=== PATIENT | female | born 1985 | race Hispanic/Latino ===

== ENCOUNTER 2020-07-27 11:51 | Emergency (ER) | payer SELFPAY ==
--- NOTE | 2020-07-27 12:21 | Event Note ---
ED Screening Note Date of service: 07/27/20 Time: 12:20 ED Screening Note: Patient complains of nausea, vomiting, and diarrhea starting around 530 this morning Active vomiting in triage This initial assessment/diagnostic orders/clinical plan/treatment(s) is/are subject to change based on patients health status, clinical progression and re- assessment by fellow clinical providers in the ED. Further treatment and workup at subsequent clinical providers discretion. Patient/guardian urged not to elope from the ED as their condition may be serious if not clinically assessed and managed. Initial orders include: Lab
[2020-07-27] MEDS ORDERED: ONDANSETRON 4 MG ODT TAB ONE (12:29)
[2020-07-27] MEDS ORDERED: ONDANSETRON 4 MG ODT TAB PO ONE (12:33)
[2020-07-27 13:52] LABS: Hematocrit 40.3 % (30.3-42.9); Hemoglobin 13.7 gm/dl (10.1-14.3); Mean Corpuscular HGB Conc 34 % (30-34); Mean Corpuscular Volume 89 fl (79-97); Platelet Count 347 K/mm3 (140-440); Red Blood Count 4.53 M/mm3 (3.65-5.03); Red Cell Distribution Width 13.7 % (13.2-15.2)
[2020-07-27] MEDS ORDERED: ONDANSETRON 4 MG/2 ML INJ IV ONE (14:14)
[2020-07-27] MEDS ORDERED: SODIUM CHLORIDE 0.9% 1000 ML 1,000 ML IV ONE (14:14)
[2020-07-27 14:50] LABS: Alanine Aminotransferase 11 units/L (7-56); Albumin 4.5 g/dL (3.9-5); Blood Urea Nitrogen 8 mg/dL (7-17); Calcium 9.5 mg/dL (8.4-10.2); Hemolysis Index 5
[2020-07-27 14:51] LABS: BUN/Creatinine Ratio 11
--- NOTE | 2020-07-27 14:56 | Emergency Department Report ---
ED N/V/D HPI - General Chief complaint: Nausea/Vomiting/Diarrhea Stated complaint: VOMITING/DIARRHEA PUI?: No Time Seen by Provider: 07/27/20 12:20 Source: patient Mode of arrival: Wheelchair Limitations: No Limitations - History of Present Illness Initial comments: 34 YO COMES TO ER CO NV AND DIARRHEA THAT STARTED THIS AM. SHE DID NOT EAT ANYTHING KNOWN TO BE BAD. LMP LAST WEEK. DENIES FEVEER OR CHILLS. DENIES COUGH. DENIES CP OR SOB DENIES ABD PAIN OR BACK PAIN DENIES VAG DC. MD complaint: nausea, vomiting, diarrhea -: Sudden, hour(s), days(s) Description of Vomiting: watery Associated Abdominal Pain: No Severity: moderate Quality: cramping Worsens with: none Associated Symptoms: denies other symptoms - Related Data Previous Rx's Medication Instructions Recorded Last Taken Type Ondansetron [Zofran Odt] 4 mg PO Q8HR PRN #10 tab.rapdis 07/27/20 Unknown Rx Allergies Allergy/AdvReac Type Severity Reaction Status Date / Time Penicillins Allergy Hives Verified 07/27/20 12:00 ED Review of Systems ROS: Stated complaint: VOMITING/DIARRHEA Other details as noted in HPI Comment: All other systems reviewed and negative ED Past Medical Hx - Past Medical History Previous Medical History?: Yes Additional medical history: ENDOMETRIOSIS - Surgical History Past Surgical History?: Yes Additional Surgical History: LAP FOR HER ENDOMET - Family History Family history: no significant - Social History Smoking Status: Current Every Day Smoker Substance Use Type: Alcohol - Medications Home Medications: Home Medications Medication Instructions Recorded Confirmed Last Taken Type Ondansetron [Zofran Odt] 4 mg PO Q8HR PRN #10 tab.rapdis 07/27/20 Unknown Rx ED Physical Exam - General Limitations: No Limitations General appearance: alert, in no apparent distress - Head Head exam: Present: atraumatic, normocephalic - Eye Eye exam: Present: normal appearance - ENT ENT exam: Present: mucous membranes moist - Neck Neck exam: Present: normal inspection - Respiratory Respiratory exam: Present: normal lung sounds bilaterally. Absent: respiratory distress - Cardiovascular Cardiovascular Exam: Present: regular rate, normal rhythm. Absent: systolic murmur, diastolic murmur, rubs, gallop - GI/Abdominal GI/Abdominal exam: Present: soft, normal bowel sounds - Extremities Exam Extremities exam: Present: normal inspection - Back Exam Back exam: Present: normal inspection - Neurological Exam Neurological exam: Present: alert, oriented X3 - Psychiatric Psychiatric exam: Present: normal affect, normal mood - Skin Skin exam: Present: warm, dry, intact, normal color, pallor. Absent: rash ED Course Vital Signs 07/27/20 12:00 Temperature 97.3 F L Pulse Rate 64 Respiratory 18 Rate Blood Pressure 141/90 [Right] O2 Sat by Pulse 100 Oximetry ED Medical Decision Making - Lab Data Result diagrams: 07/27/20 13:22 07/27/20 13:22 - Medical Decision Making Lab Results 07/27/20 07/27/20 07/27/20 Range/Units 13:22 13:22 13:22 WBC 13.4 H (4.5-11.0) K/mm3 RBC 4.53 (3.65-5.03) M/mm3 Hgb 13.7 (10.1-14.3) gm/dl Hct 40.3 (30.3-42.9) % MCV 89 (79-97) fl MCH 30 (28-32) pg MCHC 34 (30-34) % RDW 13.7 (13.2-15.2) % Plt Count 347 (140-440) K/mm3 Seg Neutrophils % Java Engineer Sodium 145 (137-145) mmol/L Potassium 4.4 (3.6-5.0) mmol/L Chloride 106.3 (98-107) mmol/L Carbon Dioxide 23 (22-30) mmol/L Anion Gap 20 mmol/L BUN 8 (7-17) mg/dL Creatinine 0.7 (0.6-1.2) mg/dL Estimated GFR > 60 ml/min BUN/Creatinine Ratio 11 % Glucose 196 H (65-100) mg/dL Calcium 9.5 (8.4-10.2) mg/dL Total Bilirubin 0.30 (0.1-1.2) mg/dL AST 15 (5-40) units/L ALT 11 (7-56) units/L Alkaline Phosphatase 62 (35-129) units/L Total Protein 7.3 (6.3-8.2) g/dL Albumin 4.5 (3.9-5) g/dL Albumin/Globulin Ratio 1.6 % Lipase 14 (13-60) units/L HCG, Qual Negative (Negative) Vital Signs 07/27/20 12:00 Temperature 97.3 F L Pulse Rate 64 Respiratory 18 Rate Blood Pressure 141/90 [Right] O2 Sat by Pulse 100 Oximetry LABS NOTED UA NOTED ZOFRAN/NS GIVEN IV ON REEXAM PT THEN TAKING PO WITH DIFFICULTY PT WILL BE DC HOME WITH DC PLAN OF CARE INCLUDING PCP FOLLOW UP. PT VERBALIZES UNDERSTANDING OF DC PLAN OF CARE. - Differential Diagnosis RO UTI/PREG/GASTROENTERITIS Critical care attestation.: If time is entered above; I have spent that time in minutes in the direct care of this critically ill patient, excluding procedure time. ED Disposition Clinical Impression: Gastroenteritis Disposition: DC-01 TO HOME OR SELFCARE Is pt being admited?: No Does the pt Need Aspirin: No Condition: Stable Instructions: Viral Gastroenteritis, Adult Additional Instructions: MED ORDERED TODAY BLAND DIET AND ADVANCE TOLERATED FOLLOW UP WITH PCP IN 48 HOURS IF PERSISTS REFERRAL BELOW STAY WELL HYDRATED Prescriptions: Ondansetron [Zofran Odt] 4 mg PO Q8HR PRN #10 tab.rapdis PRN Reason: Vomiting Referrals: MIKA GARCIA MD [Staff Physician] - 3-5 Days Time of Disposition: 14:59
[2020-07-27 15:10] LABS: Platelet Estimate Consistent w Auto; RBC Morphology Normal; Total Cells Counted 100
[2020-07-27 15:51] LABS: Bilirubin,Urine NEG (Negative); Blood,Urine NEG (Negative); Color,Urine Yellow (Yellow); Mucus,Urine 2+ /HPF; Urobilinogen,Urine < 2.0 mg/dL (<2.0)
[2020-07-27 17:06] VITALS: BP 147/77
== END 2020-07-27 17:07 | disposition home or self-care (01) ==
LOC: ED 11:51
DX: K52.9 Noninfective gastroenteritis and colitis, unspecified (principal); F17.200 Nicotine dependence, unspecified, uncomplicated; Z79.899 Other long term (current) drug therapy; Z98.890 Other specified postprocedural states; Z88.0 Allergy status to penicillin
CPT/HCPCS: 36415; 80053; 81001; 83690; 84703; 85007; 85025; 96361; 96374; 99283; J2405; J7030; Q0162

== ENCOUNTER 2020-07-29 13:32 | Emergency (ER) | payer SELFPAY ==
--- NOTE | 2020-07-29 15:18 | Event Note ---
ED Screening Note Date of service: 07/29/20 Time: 15:16 ED Screening Note: 34-year-old female patient presents to the emergency department with complaints of worsening epigastric abdominal pain, nausea, and vomiting for 2 days. Patient states she was evaluated in the emergency department on the day her symptoms began. Review of past medical records from July 27, 2020 indicates patient was found to have an elevated white blood cell count. No imaging was performed. She was treated symptomatically and discharged home in stable condition. Today, she reports the pain is worse, and her ability to tolerate food and fluids has also worsened. She also noticed "red streaks" in her emesis today. No fever. No diarrhea. General: Awake, appropriately interactive, no acute distress. Neck: Supple. Full range of motion intact. Cardiovascular: Normal peripheral perfusion. Pulmonary: No respiratory distress. Patient is speaking normally without use of accessory muscles. Abdomen: Soft, nondistended. Epigastric tenderness without guarding, rigidity, or rebound. Soares sign is negative. Skin: No apparent rashes or lesions. Neurological: No facial asymmetry. Speech is clear. Follows commands. Patient is alert and oriented. Musculoskeletal: Moves all four extremities spontaneously with normal range of motion. Psych: Cooperative. Appropriate mood and affect. This initial assessment/diagnostic orders/clinical plan/treatment(s) is/are subject to change based on patients health status, clinical progression and re- assessment by fellow clinical providers in the ED. Further treatment and workup at subsequent clinical providers discretion. Patient/guardian urged not to elope from the ED as their condition may be serious if not clinically assessed and managed.
[2020-07-29 15:56] LABS: Basophils % (Auto) 0.2 % (0.0-1.8); Eosinophils % (Auto) 0.1 % (0.0-4.3); Hematocrit 43.1 % (30.3-42.9); Hemoglobin 14.4 gm/dl (10.1-14.3); Lymphocytes # (Auto) 2.5 K/mm3 (1.2-5.4); Mean Corpuscular HGB Conc 33 % (30-34); Mean Corpuscular Volume 89 fl (79-97); Monocytes # (Auto) 0.8 K/mm3 (0.0-0.8); Monocytes % (Auto) 6.8 % (0.0-7.3); Platelet Count 362 K/mm3 (140-440); Red Blood Count 4.82 M/mm3 (3.65-5.03); Red Cell Distribution Width 13.1 % (13.2-15.2)
[2020-07-29 16:19] LABS: Alanine Aminotransferase 13 units/L (7-56); Albumin 4.8 g/dL (3.9-5); Blood Urea Nitrogen 11 mg/dL (7-17); Calcium 9.8 mg/dL (8.4-10.2); Hemolysis Index 6
[2020-07-29 16:23] LABS: BUN/Creatinine Ratio 18
[2020-07-29] MEDS ORDERED: ONDANSETRON 4 MG ODT TAB PO ONE (16:57)
[2020-07-29] MEDS ORDERED: MORPHINE 4 MG/1 ML INJ IV ONE (17:30)
[2020-07-29] MEDS ORDERED: PANTOPRAZOLE 40 MG INJ IV ONE (17:30)
--- NOTE | 2020-07-29 17:53 | Emergency Department Report ---
ED General Adult HPI - General Chief complaint: Nausea/Vomiting/Diarrhea Stated complaint: VOMITTING BLOOD Time Seen by Provider: 07/29/20 17:23 Source: patient Mode of arrival: Ambulatory Limitations: No Limitations - History of Present Illness Initial comments: 34-year-old female patient presents to the emergency department with complaints of worsening epigastric abdominal pain, nausea, and vomiting for 3 days. Patient was seen here in the ED on 07/27/2020 for the same. Today, she reports the pain is worse, and her ability to tolerate food and fluids has also worsened. She also noticed "red streaks" in her emesis today. Patient denies fever/chills/sweats, chest pain, melena/hematochezia, urinary symptoms, loss of smell/taste, or cough/shortness of breath. Patient does admit to smoking marijuana the day before her symptoms started. Surgical history includes laparoscopic for endometriosis. Patient states that she was not able to nut picker her Zofran prescription given at last visit and has not taken any antiemetics at home prior to arrival today. - Related Data Previous Rx's Medication Instructions Recorded Last Taken Type Ondansetron [Zofran Odt] 4 mg PO Q8HR PRN #10 tab.rapdis 07/27/20 Unknown Rx Famotidine [Pepcid] 20 mg PO BID 5 Days #10 tablet 07/29/20 Unknown Rx Metoclopramide [Reglan] 10 mg PO TID PRN #15 tab 07/29/20 Unknown Rx Sucralfate [Carafate] 1 gm PO Q6HR #30 tablet 07/29/20 Unknown Rx diphenhydrAMINE [Benadryl CAP] 25 mg PO TID PRN #15 capsule 07/29/20 Unknown Rx Allergies Allergy/AdvReac Type Severity Reaction Status Date / Time Penicillins Allergy Hives Verified 07/27/20 12:00 ED Review of Systems ROS: Stated complaint: VOMITTING BLOOD Other details as noted in HPI Constitutional: denies: chills, diaphoresis, fever, malaise, weakness Respiratory: denies: cough, shortness of breath Cardiovascular: denies: chest pain Gastrointestinal: abdominal pain, nausea, vomiting. denies: diarrhea, constipation, hematemesis, melena, hematochezia Genitourinary: denies: urgency, dysuria, frequency, hematuria, discharge, abnormal menses, dyspareunia Musculoskeletal: denies: back pain Neurological: denies: headache Hematological/Lymphatic: denies: swollen glands ED Past Medical Hx - Past Medical History Previous Medical History?: Yes Additional medical history: ENDOMETRIOSIS - Surgical History Past Surgical History?: Yes Additional Surgical History: LAP FOR HER ENDOMET - Social History Smoking Status: Current Every Day Smoker Substance Use Type: None - Medications Home Medications: Home Medications Medication Instructions Recorded Confirmed Last Taken Type Ondansetron [Zofran Odt] 4 mg PO Q8HR PRN #10 tab.rapdis 07/27/20 Unknown Rx Famotidine [Pepcid] 20 mg PO BID 5 Days #10 tablet 07/29/20 Unknown Rx Metoclopramide [Reglan] 10 mg PO TID PRN #15 tab 07/29/20 Unknown Rx Sucralfate [Carafate] 1 gm PO Q6HR #30 tablet 07/29/20 Unknown Rx diphenhydrAMINE [Benadryl CAP] 25 mg PO TID PRN #15 capsule 07/29/20 Unknown Rx ED Physical Exam - General Limitations: No Limitations General appearance: alert, in no apparent distress - Head Head exam: Present: atraumatic, normocephalic - Eye Eye exam: Present: normal appearance - Neck Neck exam: Present: normal inspection - Respiratory Respiratory exam: Present: normal lung sounds bilaterally. Absent: respiratory distress - Cardiovascular Cardiovascular Exam: Present: regular rate, normal rhythm - GI/Abdominal GI/Abdominal exam: Present: soft, tenderness (Epigastric), normal bowel sounds. Absent: distended, guarding, rebound, rigid - Extremities Exam Extremities exam: Present: full ROM - Back Exam Back exam: Present: full ROM. Absent: CVA tenderness (R), CVA tenderness (L) - Neurological Exam Neurological exam: Present: alert, oriented X3, normal gait - Psychiatric Psychiatric exam: Present: normal affect, normal mood - Skin Skin exam: Present: warm, dry, intact, normal color. Absent: rash, cyanosis, diaphoretic ED Course Vital Signs 07/29/20 07/29/20 13:56 18:58 Temperature 98.3 F Pulse Rate 60 Respiratory 16 18 Rate Blood Pressure 131/75 O2 Sat by Pulse 100 Oximetry ED Medical Decision Making - Lab Data Result diagrams: 07/29/20 15:38 07/29/20 15:38 Lab Results 07/29/20 07/29/20 07/29/20 Range/Units 15:38 15:38 15:38 WBC 12.4 H (4.5-11.0) K/mm3 RBC 4.82 (3.65-5.03) M/mm3 Hgb 14.4 H (10.1-14.3) gm/dl Hct 43.1 H (30.3-42.9) % MCV 89 (79-97) fl MCH 30 (28-32) pg MCHC 33 (30-34) % RDW 13.1 L (13.2-15.2) % Plt Count 362 (140-440) K/mm3 Lymph % (Auto) 20.0 (13.4-35.0) % Wagoner % (Auto) 6.8 (0.0-7.3) % Eos % (Auto) 0.1 (0.0-4.3) % Baso % (Auto) 0.2 (0.0-1.8) % Lymph # (Auto) 2.5 (1.2-5.4) K/mm3 Wagoner # (Auto) 0.8 (0.0-0.8) K/mm3 Eos # (Auto) 0.0 (0.0-0.4) K/mm3 Baso # (Auto) 0.0 (0.0-0.1) K/mm3 Seg Neutrophils % 72.9 H (40.0-70.0) % Seg Neutrophils # 9.1 H (1.8-7.7) K/mm3 Sodium 139 (137-145) mmol/L Potassium 4.3 (3.6-5.0) mmol/L Chloride 98.8 (98-107) mmol/L Carbon Dioxide 30 D (22-30) mmol/L Anion Gap 15 mmol/L BUN 11 (7-17) mg/dL Creatinine 0.6 (0.6-1.2) mg/dL Estimated GFR > 60 ml/min BUN/Creatinine Ratio 18 % Glucose 121 H (65-100) mg/dL Calcium 9.8 (8.4-10.2) mg/dL Magnesium 2.10 (1.7-2.3) mg/dL Total Bilirubin 0.70 (0.1-1.2) mg/dL AST 14 (5-40) units/L ALT 13 (7-56) units/L Alkaline Phosphatase 56 (35-129) units/L Total Protein 7.0 (6.3-8.2) g/dL Albumin 4.8 (3.9-5) g/dL Albumin/Globulin Ratio 2.2 % Lipase 22 (13-60) units/L HCG, Qual Negative (Negative) - Radiology Data Radiology results: report reviewed CT ABDOMEN AND PELVIS WITH IV CONTRAST INDICATION: Epigastric pain, nausea and vomiting. TECHNIQUE: Following the administration of intravenous contrast, multiple axial CT images of the abdomen and pelvis were acquired. Sagittal and coronal reformats were obtained. All CT performed at this facility utilize dose reduction techniques including automated exposure control, iterative reconstruction and weight based dosing when appropriate to reduce patient radiation dose to as low as reasonably achievable. COMPARISON: None FINDINGS: Limited imaging of the bilateral lung bases demonstrates no acute abnormality. ABDOMEN: The liver, gallbladder, spleen, pancreas, bilateral adrenal glands and bilateral kidneys show no evidence of acute abnormality. The abdominal aorta is normal in caliber. There is no evidence of bowel obstruction or free fluid. The appendix is not clearly identified but no pericecal inflammatory changes are seen. PELVIS: The uterus and urinary bladder appear within normal limits. No free pelvic fluid is identified. BONES AND SOFT TISSUES: No significant abnormality. IMPRESSION: 1. No evidence of acute inflammatory or obstructive process within the abdomen or pelvis. - Medical Decision Making 34-year-old female patient presents to the emergency department with complaints of worsening epigastric abdominal pain, nausea, and vomiting for 3 days. Patient was seen here in the ED on 07/27/2020 for the same. Today, she reports the pain is worse, and her ability to tolerate food and fluids has also worsened. She also noticed "red streaks" in her emesis today. Patient denies fever/chills/sweats, chest pain, melena/hematochezia, urinary symptoms, loss of smell/taste, or cough/shortness of breath. Patient does admit to smoking marijuana the day before her symptoms started. Surgical history includes laparoscopic for endometriosis. Patient states that she was not able to nut picker her Zofran prescription given at last visit and has not taken any antiemetics at home prior to arrival today. Review of chart from 07/27/2020 showed no imaging performed, however mildly elevated white count at 13.4. White count today 12.4. Lipase is normal. Anion gap somewhat elevated at 15 without any other significant abnormalities noted on CMP. CT abdomen is negative for any acute abnormalities. Suspect symptoms due to cannabinoid hyperemesis syndrome. Patient given 1 L of LR and Zofran and her vomiting is controlled. She is tolerating fluids p.o. at this time without difficulty. No further vomiting observed here in ED. Patient's vitals remained stable, she is nontoxic-appearing, she is stable for discharge home. Discussed need for follow-up with primary care provider in 3 days. Strict return precautions were also discussed in detail with patient who verbalizes understanding. Critical care attestation.: If time is entered above; I have spent that time in minutes in the direct care of this critically ill patient, excluding procedure time. ED Disposition Clinical Impression: Cannabinoid hyperemesis syndrome Gastritis Qualifiers: Gastritis type: other gastritis Chronicity: acute Gastritis bleeding: without bleeding Qualified Code(s): K29.00 - Acute gastritis without bleeding Disposition: - TO HOME OR SELFCARE Is pt being admited?: No Condition: Stable Instructions: Cannabinoid Hyperemesis Syndrome, Gastritis, Adult Prescriptions: diphenhydrAMINE [Benadryl CAP] 25 mg PO TID PRN #15 capsule PRN Reason: Nausea Sucralfate [Carafate] 1 gm PO Q6HR #30 tablet Famotidine [Pepcid] 20 mg PO BID 5 Days #10 tablet Metoclopramide [Reglan] 10 mg PO TID PRN #15 tab PRN Reason: Nausea Referrals: PRIMARY CARE, [Primary Care Provider] - 3-5 Days [facility] [Provider Group] - 3-5 Days Forms: Work/School Release Form(ED)
[2020-07-29] MEDS ORDERED: LACTATED RINGERS 1,000 ML IV ONE (19:14)
--- NOTE | 2020-07-29 19:26 | Cat Scan Report ---
CT ABDOMEN AND PELVIS WITH IV CONTRAST INDICATION: Epigastric pain, nausea and vomiting. TECHNIQUE: Following the administration of intravenous contrast, multiple axial CT images of the abdo men and pelvis were acquired. Sagittal and coronal reformats were obtained. All CT performed at this facility utilize dose reduction techniques including automated exposure control, iterative reconstru ction and weight based dosing when appropriate to reduce patient radiation dose to as low as reasonab ly achievable. COMPARISON: None FINDINGS: Limited imaging of the bilateral lung bases demonstrates no acute abnormality. ABDOMEN: The liver, gallbladder, spleen, pancreas, bilateral adrenal glands and bilateral kidneys show no evid ence of acute abnormality. The abdominal aorta is normal in caliber. There is no evidence of bowel ob struction or free fluid. The appendix is not clearly identified but no pericecal inflammatory changes are seen. PELVIS: The uterus and urinary bladder appear within normal limits. No free pelvic fluid is identified. BONES AND SOFT TISSUES: No significant abnormality. IMPRESSION: 1. No evidence of acute inflammatory or obstructive process within the abdomen or pelvis. Signer Name: Jennifer Reid MD Signed: 07/29/2020 7:21 PM Workstation Name: [id number]
[2020-07-29 21:14] VITALS: BP 119/64
== END 2020-07-29 21:13 | disposition home or self-care (01) ==
LOC: ED 13:32
DX: K29.70 Gastritis, unspecified, without bleeding (principal); R11.2 Nausea with vomiting, unspecified; F17.200 Nicotine dependence, unspecified, uncomplicated; Z79.899 Other long term (current) drug therapy; Z88.0 Allergy status to penicillin; Z98.890 Other specified postprocedural states
CPT/HCPCS: 36415; 74177; 80053; 83690; 83735; 84703; 85025; 96374; 96375; 99284; C9113; J2270; J7120; Q9967; Q0162